=== PATIENT | male | born 1985 | race African-American/Black ===

== ENCOUNTER 2019-05-22 12:34 | Emergency (ER) | payer OTHER ==
[2019-05-22] MEDS ORDERED: KETOROLAC 30 MG/ML INJ ONE (13:16)
--- NOTE | 2019-05-22 13:45 | RAD REPORT ---
EXAM DESCRIPTION: RAD - Knee Right 3 View - 05/22/2019 1:37 pm CLINICAL HISTORY: Right knee pain status post injury FINDINGS: Postsurgical changes of an ACL repair No fracture or dislocation is seen There appears to be small to moderate joint effusion If patient continues have symptoms to suggest ligamentous or meniscal injury then nonemergent MRI wou ld be recommended
--- NOTE | 2019-05-22 14:08 | ER ---
Nurse's Notes [facility] Name: James Abbott Age: 34 yrs Sex: Male : 1985 Arrival Date: 05/22/2019 Time: 12:38 Bed 25 Private MD: Diagnosis: Internal derangement of knee Presentation: 05/21 12:42 Chief complaint: Patient states: was playing basketball on Saturday, jumped and felt a iw pop in right knee, felt a sharp constant pain . can't bend, can hardly walk, feels similar to when he tore his ACL in same knee, has previous shrapnel injury to knee. Coronavirus screen: Patient denies fever greater than 100.4F, cough, shortness of breath, or difficulty breathing. Proceed with normal triage process. Ebola Screen: Patient negative for fever greater than or equal to 101.5 degrees Fahrenheit, and additional compatible Ebola Virus Disease symptoms Patient denies exposure to infectious person. Patient denies travel to an Ebola-affected area in the 21 days before illness onset. No symptoms or risks identified at this time. Initial Sepsis Screen: Does the patient meet any 2 criteria? No. Patient's initial sepsis screen is negative. Does the patient have a suspected source of infection? No. Patient's initial sepsis screen is negative. Risk Assessment: Do you want to hurt yourself or someone else? Patient reports no desire to harm self or others. 12:42 Method Of Arrival: Wheelchair iw 12:42 Acuity: BRAXTON 4 iw 13:21 Onset of symptoms was May 17, 2019. vc Triage Assessment: 13:20 General: Appears in no apparent distress. uncomfortable, well groomed, Behavior is vc calm, cooperative, appropriate for age. Pain: Complains of pain in right knee. Historical: - Allergies: 12:45 No Known Allergies; iw - Home Meds: 12:45 None [Active]; iw - PMHx: 12:45 None; iw - PSHx: 12:45 right knee; iw - Immunization history:: Adult Immunizations. - Social history:: Smoking status: Patient reports the use of cigarette tobacco products, smokes one-half pack cigarettes per day. Screenin:20 Abuse screen: Denies threats or abuse. Nutritional screening: No deficits noted. vc Tuberculosis screening: No symptoms or risk factors identified. Fall Risk No fall in past 12 months (0 pts). No secondary diagnosis (0 pts). No IV (0 pts). Ambulatory Aid- None/Bed Rest/Nurse Assist (0 pts). Gait- Impaired (20 pts.). Mental Status- Oriented to own ability (0 pts). Total Valdivia Fall Scale indicates No Risk (0-24 pts). Assessment: 13:23 General: Appears in no apparent distress. uncomfortable, Behavior is calm, cooperative, vc appropriate for age. Pain: Complains of pain in right knee Pain Pain began 2-3 days ago. Neuro: Level of Consciousness is awake, alert, obeys commands, Oriented to person, place, time, situation, Appropriate for age. Cardiovascular: Capillary refill < 3 seconds Patient's skin is warm and dry. Respiratory: Airway is patent Respiratory effort is even, unlabored, Respiratory pattern is regular, symmetrical. GI: No signs and/or symptoms were reported involving the gastrointestinal system. : No signs and/or symptoms were reported regarding the genitourinary system. EENT: No signs and/or symptoms were reported regarding the EENT system. Derm: Skin temperature is warm. Musculoskeletal: Reports pain in right knee since Saturday . Injury Description: Hurt knee while playing basketball. 14:15 Reassessment: Patient appears in no apparent distress at this time. Patient and/or vc family updated on plan of care and expected duration. Pain level reassessed. Vital Signs: 12:42 Pulse 94; Resp 16; Temp 98.4; Pulse Ox 100% on R/A; Weight 92.99 kg; Height 6 ft. 1 in. iw (185.42 cm); Pain 10/10; 12:46 BP 146 / 104; iw 14:00 BP 158 / 104; Pulse 92; Pulse Ox 100% on R/A; vc 12:42 Body Mass Index 27.05 (92.99 kg, 185.42 cm) iw ED Course: 12:38 Patient arrived in ED. am2 12:44 Triage completed. iw 12:45 Arm band placed on. iw 12:50 Rosal[facility] Bolaños [facility]-C [facility]. snw 12:50 Charles Kidd MD is Attending Physician. snw 12:59 Esther White RN is Primary Nurse. vc 13:15 Patient has correct armband on for positive identification. Placed in gown. Bed in low vc position. Call light in reach. Pulse ox on. NIBP on. Warm blanket given. 13:37 Knee Right 3 View XRAY In Process Unspecified. EDMS 14:28 Crutch training done. Knee immobilizer applied on right knee. ca1 14:34 No provider procedures requiring assistance completed. Patient did not have IV access vc during this emergency room visit. Administered Medications: 13:18 Drug: TORadol 30 mg Route: IM; Site: left deltoid; vc 14:16 Follow up: Response: No adverse reaction; Pain is unchanged, physician notified vc 14:20 Drug: Zofran (Ondansetron) 4 mg Route: PO; ca1 14:22 Follow up: Response: No adverse reaction; Medication administered at discharge. vc 14:22 Drug: morphine 4 mg {Note: RASS - 0.} Route: IM; Site: right deltoid; ca1 14:22 Follow up: Response: No adverse reaction; Medication administered at discharge. vc Outcome: 14:07 Discharge ordered by . snmelvin 14:34 Discharged to home vc 14:34 Discharged to home with crutches, with family. 14:34 Condition: good 14:34 Condition: good 14:34 Discharge instructions given to patient. 14:34 Patient left the ED. vc Signatures: Dispatcher [employer] EDMS Rosalva Bolaños, CANDY DEPOSITING MACHINE OPERATOR-C CANDY DEPOSITING MACHINE OPERATOR-Csnw Becky Cleveland RN RN iw Adwoa Shaikh am2 Alexia Bonilla RN RN ca1 Esther White RN RN vc Corrections: (The following items were deleted from the chart) 12:45 12:42 Chief complaint: Patient states: was playing basketball on Saturday, jumped and iw felt a pop in right knee, felt a sharp constant pain . can't bend, can hardly walk, feels similar to when he tore his ACL in left knee iw
--- NOTE | 2019-05-22 14:08 | EDPHYS ---
Physician Documentation [facility] Name: James Abbott Age: 34 yrs Sex: Male : 1985 Arrival Date: 05/22/2019 Time: 12:38 Bed 25 Private MD: ED Physician Charles Kidd HPI: 05/21 13:24 This 34 yrs old Unknown Male presents to ER via Wheelchair with complaints of POSSIBLE snw TORN RT ACL. 13:24 Onset: The symptoms/episode began/occurred suddenly, 6 day(s) ago, and became snw persistent. Associated signs and symptoms: Pertinent positives:. 13:24 The patient presents with decreased range of motion, pain, swelling. The complaints snw affect the right knee. Context: The problem was sustained outdoors, at a sports field or court, resulted from twisting of the extremity, the patient can partially bear weight, the patient is able to ambulate, with mild difficulty, Problem is a result from a previous injury: previous ACL repair to same knee. Associated signs and symptoms: Pertinent positives: swelling, warmth. Treatment prior to arrival includes: no previous treatment. Severity of symptoms: At their worst the symptoms were moderate, severe. The patient has experienced a previous episode, many years ago. The patient has not recently seen a physician, [facility]. Historical: - Allergies: 12:45 No Known Allergies; iw - Home Meds: 12:45 None [Active]; iw - PMHx: 12:45 None; iw - PSHx: 12:45 right knee; iw - Immunization history:: Adult Immunizations. - Social history:: Smoking status: Patient reports the use of cigarette tobacco products, smokes one-half pack cigarettes per day. ROS: 13:23 Constitutional: Negative for fever, chills, and weight loss, Eyes: Negative for injury, snw pain, redness, and discharge, ENT: Negative for injury, pain, and discharge, Neck: Negative for injury, pain, and swelling, Cardiovascular: Negative for chest pain, palpitations, and edema, Respiratory: Negative for shortness of breath, cough, wheezing, and pleuritic chest pain, Abdomen/GI: Negative for abdominal pain, nausea, vomiting, diarrhea, and constipation, Back: Negative for injury and pain, : Negative for injury, bleeding, discharge, and swelling, Skin: Negative for injury, rash, and discoloration, Neuro: Negative for headache, weakness, numbness, tingling, and seizure. 13:23 MS/extremity: Positive for injury or acute deformity, decreased range of motion, pain, swelling, warmth, of the right knee. Exam: 13:21 Constitutional: This is a well developed, well nourished patient who is awake, alert, snw and in no acute distress. Head/Face: Normocephalic, atraumatic. Eyes: Pupils equal round and reactive to light, extra-ocular motions intact. Lids and lashes normal. Conjunctiva and sclera are non-icteric and not injected. Cornea within normal limits. Periorbital areas with no swelling, redness, or edema. ENT: Nares patent. No nasal discharge, no septal abnormalities noted. Tympanic membranes are normal and external auditory canals are clear. Oropharynx with no redness, swelling, or masses, exudates, or evidence of obstruction, uvula midline. Mucous membranes moist. Neck: Trachea midline, no thyromegaly or masses palpated, and no cervical lymphadenopathy. Supple, full range of motion without nuchal rigidity, or vertebral point tenderness. No Meningismus. Chest/axilla: Normal chest wall appearance and motion. Nontender with no deformity. No lesions are appreciated. Cardiovascular: Regular rate and rhythm with a normal S1 and S2. No gallops, murmurs, or rubs. Normal PMI, no JVD. No pulse deficits. Respiratory: Lungs have equal breath sounds bilaterally, clear to auscultation and percussion. No rales, rhonchi or wheezes noted. No increased work of breathing, no retractions or nasal flaring. Abdomen/GI: Soft, non-tender, with normal bowel sounds. No distension or tympany. No guarding or rebound. No evidence of tenderness throughout. Back: No spinal tenderness. No costovertebral tenderness. Full range of motion. Skin: Warm, dry with normal turgor. Normal color with no rashes, no lesions, and no evidence of cellulitis. Neuro: Awake and alert, GCS 15, oriented to person, place, time, and situation. Cranial nerves II-XII grossly intact. Motor strength 5/5 in all extremities. Sensory grossly intact. Cerebellar exam normal. Normal gait. Psych: Awake, alert, with orientation to person, place and time. Behavior, mood, and affect are within normal limits. 13:21 Musculoskeletal/extremity: Extremities: grossly normal except: noted in the right knee: decreased ROM, pain, warmth, ROM: limited active range of motion due to pain, limited passive range of motion due to pain, Circulation is intact in all extremities. Sensation intact. Weight bearing: can bear weight with assistance only, limp. Vital Signs: 12:42 Pulse 94; Resp 16; Temp 98.4; Pulse Ox 100% on R/A; Weight 92.99 kg; Height 6 ft. 1 in. iw (185.42 cm); Pain 10/10; 12:46 BP 146 / 104; iw 14:00 BP 158 / 104; Pulse 92; Pulse Ox 100% on R/A; vc 12:42 Body Mass Index 27.05 (92.99 kg, 185.42 cm) iw MDM: 13:04 Patient medically screened. snw 14:08 Data reviewed: vital signs, nurses notes. Data interpreted: Pulse oximetry: on room air snw is 100 %. Interpretation: normal. Counseling: I had a detailed discussion with the patient and/or guardian regarding: the historical points, exam findings, and any diagnostic results supporting the discharge/admit diagnosis, radiology results, the need for outpatient follow up, to return to the emergency department if symptoms worsen or persist or if there are any questions or concerns that arise at home. Special discussion: I have referred the patient to see his PCP for further evaluation of high blood pressure. Based on the history and exam findings, there is no indication for further emergent testing or inpatient evaluation. I discussed with the patient/guardian the need to see the orthopedic surgeon for further evaluation of the symptoms. 05/21 13:04 Order name: Knee Right 3 View XRAY; Complete Time: 14:06 snw 05/21 14:06 Order name: Knee Immobilizer; Complete Time: 14:16 snw 05/21 14:08 Order name: Crutches; Complete Time: 14:16 snw Administered Medications: 13:18 Drug: TORadol 30 mg Route: IM; Site: left deltoid; vc 14:16 Follow up: Response: No adverse reaction; Pain is unchanged, physician notified vc 14:20 Drug: Zofran (Ondansetron) 4 mg Route: PO; ca1 14:22 Follow up: Response: No adverse reaction; Medication administered at discharge. vc 14:22 Drug: morphine 4 mg {Note: RASS - 0.} Route: IM; Site: right deltoid; ca1 14:22 Follow up: Response: No adverse reaction; Medication administered at discharge. vc Disposition: 18:43 Co-signature as Attending Physician, Charles Kidd MD I agree with the assessment and kdr plan of care. Disposition: 05/22/19 14:07 Discharged to Home. Impression: Internal derangement of knee. - Condition is Stable. - Discharge Instructions: Crutch Use, Knee Immobilizer, Knee Sprain, Cryotherapy. - Prescriptions for Mobic 7.5 mg Oral Tablet - take 1 tablet by ORAL route once daily take with food; 20 tablet. orphenadrine citrate 100 mg Oral Tablet Sustained Release - take 1 tablet by ORAL route 2 times per day As needed; 20 tablet. - Work release form, Medication Reconciliation Form, Thank You Letter, Antibiotic Education, Prescription Opioid Use form. - Follow up: Emergency Department; When: As needed; Reason: Worsening of condition. Follow up: Private Physician; When: 1 week; Reason: Recheck today's complaints, Continuance of care, Re-evaluation by your physician. Signatures: Dispatcher [employer] EDMS Charles Kidd MD MD [facility] Rosalva Bolaños, CASTING CHIPPER-C CASTING CHIPPER-Csnw Becky Cleveland, CARMINE LOU iw Alexia Bonilla RN RN ca1 Esther White RN RN vc Corrections: (The following items were deleted from the chart) 14:34 14:07 05/22/2019 14:07 Discharged to Home. Impression: Internal derangement of knee. vc Condition is Stable. Forms are Medication Reconciliation Form, Thank You Letter, Antibiotic Education, Prescription Opioid Use. Follow up: Emergency Department; When: As needed; Reason: Worsening of condition. Follow up: Private Physician; When: 1 week; Reason: Recheck today's complaints, Continuance of care, Re-evaluation by your physician. snw
[2019-05-22] MEDS ORDERED: MORPHINE 4 MG/ML SYR ONE (14:26)
[2019-05-22] MEDS ORDERED: ONDANSETRON 4 MG (ODT) TAB ONE (14:26)
== END 2019-05-22 14:34 | disposition home or self-care (01) ==
LOC: ER 12:34
DX: M23.91 Unspecified internal derangement of right knee (principal); X50.1XXA Overexertion from prolonged static or awkward postures, initial encounter; Y93.9 Activity, unspecified; Y92.328 Other athletic field as the place of occurrence of the external cause; F17.210 Nicotine dependence, cigarettes, uncomplicated
CPT/HCPCS: 96372; 99284

== ENCOUNTER 2020-04-14 16:54 | Emergency (ER) | payer OTHER ==
[2020-04-14] MEDS ORDERED: LIDOCAINE 1% MPF 30 ML VIAL ONE (21:00)
[2020-04-14] MEDS ORDERED: LIDOCAINE 1% MPF 5 ML VIAL ONE (21:08)
[2020-04-14] MEDS ORDERED: CLINDAMYCIN IV 150 MG/ML (4 mL) VIAL ONE (21:08)
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
[2020-04-14 21:37] VITALS: BP 172/98; TEMP 98.7; O2SAT 100
[2020-04-14] MEDS ORDERED: IBUPROFEN 400 MG TAB ONE (21:44)
== END 2020-04-14 21:32 | disposition home or self-care (01) ==
LOC: ER 16:54
PROC: 0J910ZZ Drainage of Face Subcutaneous Tissue and Fascia, Open Approach (ICD-10-PCS; principal; 2020-04-14)
DX: L02.01 Cutaneous abscess of face (principal); L03.211 Cellulitis of face; F17.210 Nicotine dependence, cigarettes, uncomplicated
CPT/HCPCS: 96372; 99283; 10060; S0077